=== PATIENT | female | born 2000 | race Caucasian/White ===

== ENCOUNTER 2021-01-02 08:42 | Outpatient (CLI) | payer OTHER | END 2021-01-02 08:43 | disposition home or self-care (01) | LOC: CSHULT 08:42 | PROVIDERS: ATTEND Internal Medicine | DX: R10.13 Epigastric pain (principal); R11.2 Nausea with vomiting, unspecified; K76.0 Fatty (change of) liver, not elsewhere classified; R16.1 Splenomegaly, not elsewhere classified | CPT/HCPCS: 93975 ==

== ENCOUNTER 2021-01-16 11:09 | Outpatient (CLI) | payer OTHER ==
[2021-01-16 17:54] LABS: SARS-CoV-2 PCR by NAA Not Detected (NotDetected)
== END 2021-01-16 11:10 | disposition home or self-care (01) ==
LOC: CSHLAB 11:09
PROVIDERS: ATTEND Physician Assistant Medical
DX: Z20.822 Contact with and (suspected) exposure to COVID-19 (principal); R11.2 Nausea with vomiting, unspecified
CPT/HCPCS: 87635; U0003; U0005

== ENCOUNTER 2024-04-07 16:00 | Outpatient (CLI) | payer BC | END 2024-04-07 16:01 | disposition home or self-care (01) | LOC: CSHSLEEP 16:00 | PROVIDERS: ATTEND Family Medicine | DX: G47.33 Obstructive sleep apnea (adult) (pediatric) (principal); G47.419 Narcolepsy without cataplexy; G47.9 Sleep disorder, unspecified; G47.31 Primary central sleep apnea; R53.83 Other fatigue; K21.9 Gastro-esophageal reflux disease without esophagitis; F41.9 Anxiety disorder, unspecified; F32.A Depression, unspecified; G47.11 Idiopathic hypersomnia with long sleep time | CPT/HCPCS: 95810 ==

== ENCOUNTER 2024-04-08 19:00 | Outpatient (CLI) | payer BC | END 2024-04-08 19:01 | disposition home or self-care (01) | LOC: CSHSLEEP 19:00 | PROVIDERS: ATTEND Family Medicine | DX: G47.33 Obstructive sleep apnea (adult) (pediatric) (principal); G47.419 Narcolepsy without cataplexy; G47.9 Sleep disorder, unspecified; G47.31 Primary central sleep apnea; R53.83 Other fatigue; K21.9 Gastro-esophageal reflux disease without esophagitis; F41.9 Anxiety disorder, unspecified; F32.A Depression, unspecified; G47.11 Idiopathic hypersomnia with long sleep time | CPT/HCPCS: 95805 ==